=== PATIENT | female | born 1990 | race Caucasian/White ===

== ENCOUNTER 2016-09-17 08:35 | Emergency (ER) | payer OTHER ==
[2016-09-17] MEDS ORDERED: DEXAMETHASONE 10 MG/ML VIAL PO STA (08:59)
[2016-09-17] MEDS ORDERED: BENZONATATE 100 MG CAPSULE PO STA (08:59)
[2016-09-17] MEDS ORDERED: CHERRY SYRUP 10 ML UDC PO ONE (09:01)
[2016-09-17] MEDS ORDERED: BENZONATATE 100 MG CAPSULE PO ONE (09:01)
[2016-09-17] MEDS ORDERED: DEXAMETHASONE 10 MG/ML VIAL ONE (09:02)
== END 2016-09-17 10:03 | disposition home or self-care (01) ==
DX: R05 Cough (principal); R07.89 Other chest pain
CPT/HCPCS: 71020; 99283; A9270

== ENCOUNTER 2017-05-12 13:10 | Outpatient (CLI) | payer OTHER | END 2017-05-12 13:11 | disposition home or self-care (01) | LOC: RT 13:10 | PROVIDERS: ATTEND Registered Nurse Diabetes Educator | DX: R05 Cough (principal) | CPT/HCPCS: 94010; 94729 ==